=== PATIENT | male | born 1975 | race Caucasian/White ===

== ENCOUNTER 2016-07-27 17:17 | Emergency (ER) | payer SELFPAY ==
[~2016-07-27] VITALS: Ht 177.8 cm; Wt 95.3 kg
[2016-07-27 17:39] VITALS: BP 140/86
[2016-07-27 17:52] VITALS: BP 140/86
[2016-07-27] MEDS: NACL 0.9% 1,000 ML IV ONE (18:46)
[2016-07-27 18:50] LABS: BASOPHILS # (AUTO) 0.2 K/uL (0.00-0.22); BASOPHILS % (AUTO) 1.4 % (0.0-2.0); EOSINOPHILS # (AUTO) 0.2 K/uL (0-0.4); EOSINOPHILS % (AUTO) 1.5 % (0.0-4.0); HEMATOCRIT 44.7 % (36-52); HEMOGLOBIN 15.1 g/dL (12.0-18.0); LYMPHOCYTES # (AUTO) 2.4 K/uL (2.0-11.5); LYMPHOCYTES % (AUTO) 17.1 % (20.5-51.1); MEAN CORPUSCULAR HEMOGLOBIN 31 pg (27-31); MEAN CORPUSCULAR HGB CONC 34 g/dL (33-37); MEAN CORPUSCULAR VOLUME 91 fL (80-94); MONOCYTES # (AUTO) 0.9 K/uL (0.8-1.0); MONOCYTES % (AUTO) 6.2 % (1.7-9.3); NEUTROPHILS # (AUTO) 10.3 K/uL (1.8-7.7); NEUTROPHILS % (AUTO) 73.8 % (42.2-75.2); PLATELET COUNT (AUTO) 237 K/uL (140-450); RED BLOOD CELL COUNT(AUTO) 4.91 MIL/uL (4.20-6.10); RED CELL DISTRIBUTION WIDTH 13.4 % (11.6-13.7)
[2016-07-27 19:12] LABS: ALANINE AMINOTRANSFERASE 53 U/L (12-78); ALCOHOL, BLOOD < 3 mg/dL (<3); ALKALINE PHOSPHATASE 81 U/L (46-116); ASPARTATE AMINOTRANSFERASE 57 U/L (15-37); CALCIUM 8.8 mg/dL (8.5-10.1); CARBON DIOXIDE 29.1 mmol/L (21-32); CREATININE 0.9 mg/dL (0.6-1.3); GFR ARICAN-AMERICAN 120 mL/min (>90); GFR NON ARICAN-AMERICAN 99 mL/min (>90); GLUCOSE 115 mg/dL (74-106); TOTAL BILIRUBIN 0.7 mg/dL (0.0-1.0); TOTAL PROTEIN, SERUM 7.9 g/dL (6.4-8.2); UREA NITROGEN, BLOOD 9 mg/dL (7-18)
[2016-07-27 19:15] LABS: ACETAMINOPHEN < 0.5 ug/ml (10-30); SALICYLATE < 2.8 mg/dL (2.8-20.0)
[2016-07-27 19:23] LABS: ANION GAP 11.2 (8-16); CHLORIDE 98 mmol/L (98-107); POTASSIUM 3.3 mmol/L (3.5-5.1); SODIUM SERUM 135 mmol/L (136-145)
[2016-07-27 19:51] LABS: AMPHETAMINE, URINE POS. ng/ml (NEG <=1000); BARBITURATE, URINE NEG. ng/ml (NEG <=200); BENZODIAZEPINE, URINE NEG. ng/mL (NEG <=200); CANNABINOID, URINE NEG. ng/mL (NEG <=50); COCAINE, URINE NEG. ng/mL (NEG <=300); OPIATE, URINE NEG. ng/mL (NEG <=2000); PHENCYCLIDINE SCREEN,URINE NEG. ng/mL (NEG <=25)
[2016-07-27] MEDS ORDERED: LORazepam 2 MG/ML VIAL IVP ONE (20:05)
[2016-07-27 20:20] VITALS: BP 126/75
== END 2016-07-27 20:20 | disposition home or self-care (01) ==
LOC: MED 17:17
DX: G93.40 Encephalopathy, unspecified (principal); F19.10 Other psychoactive substance abuse, uncomplicated; R03.0 Elevated blood-pressure reading, without diagnosis of hypertension
CPT/HCPCS: 36415; 80053; 80305; 85025; 93005; 96360; 99284; G0480; G0482; J7030

== ENCOUNTER 2019-01-13 13:42 | Emergency (ER) | payer OTHER ==
[~2019-01-13] VITALS: Ht 177.8 cm; Wt 108.9 kg
--- NOTE | 2019-01-13 13:47 | NUR ---
AMB TO BED 11 WITH EVEN STEADY GAIT.
[2019-01-13 13:53] VITALS: BP 141/107
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
--- NOTE | 2019-01-13 14:10 | NUR ---
Dr. Madrid is evaluating the patient at bedside.
--- NOTE | 2019-01-13 14:17 | NUR ---
PATIENT TAKEN TO RADIOLOGY BY WHEELCHAIR.
[2019-01-13] MEDS ORDERED: KETOROLAC 60 MG/2 ML VIAL IM ONE (14:40)
[2019-01-13 15:45] VITALS: BP 135/91
--- NOTE | 2019-01-13 15:45 | NUR ---
Patient discharged with v/s stable. Written and verbal after care instructions given and explained. Patient alert, oriented and verbalized understanding of instructions. Ambulatory with steady gait. All questions addressed prior to discharge. ID band removed. Patient advised to follow up with PMD. Rx of MOTRIN AND TRAMADOL given. Patient educated on indication of medication including possible reaction and side effects. Opportunity to ask questions provided and answered.
== END 2019-01-13 15:45 | disposition home or self-care (01) ==
LOC: MED 13:42
DX: S42.002A Fracture of unspecified part of left clavicle, initial encounter for closed fracture (principal); V29.9XXA Motorcycle rider (driver) (passenger) injured in unspecified traffic accident, initial encounter; Y93.89 Activity, other specified; Y92.89 Other specified places as the place of occurrence of the external cause; Y99.8 Other external cause status
CPT/HCPCS: 29105; 73000; 96372; 99283; J1885

== ENCOUNTER 2021-09-16 11:01 | Emergency (ER) | payer OTHER ==
[~2021-09-16] VITALS: Ht 177.8 cm; Wt 96.3 kg
[2021-09-16 11:18] VITALS: BP 122/87
--- NOTE | 2021-09-16 11:23 | NUR ---
COVID DEMIAN, FLU SWABS DONE.
[2021-09-16] MEDS ORDERED: PROM118S5 PO (12:34)
[2021-09-16] MEDS ORDERED: IBUP-2218 PO (12:34)
--- NOTE | 2021-09-16 13:30 | NUR ---
SEEN & TREATED BY YULY MCINTOSH.
[2021-09-16 14:00] VITALS: BP 122/87
--- NOTE | 2021-09-16 14:00 | NUR ---
Patient discharged BY YULY MCINTOSH with v/s stable. Written and verbal after care instructions given and explained. Patient alert, oriented and verbalized understanding of instructions. Ambulatory with steady gait. All questions addressed prior to discharge. ID band removed. Patient advised to follow up with PMD. Rx of IBUPROFEN, PROMETHAZINE given. Patient educated on indication of medication including possible reaction and side effects. Opportunity to ask questions provided and answered. Addendum: 09/16/21 at 1403 by [facility] PT LEFT WITHOUT DISCHARHE PAPER
[2021-09-16] MEDS ORDERED: NIRM1TAB PO (14:05)
== END 2021-09-16 14:00 | disposition home or self-care (01) ==
LOC: MED 11:01
DX: U07.1 COVID-19 (principal)
CPT/HCPCS: 99283

== ENCOUNTER 2022-07-24 17:55 | Emergency (ER) | payer OTHER ==
[~2022-07-24] VITALS: Ht 160 cm; Wt 81.6 kg
[~2022-07-24 17:55] MED LIST: IBUP-2218 PO; NIRM1TAB PO; PROM118S5 PO
[2022-07-24 18:46] VITALS: BP 137/91
[2022-07-24] MEDS ORDERED: NAPR-54 PO (19:07)
[2022-07-24] MEDS ORDERED: HYDR28CR38 TP (19:07)
[2022-07-24] MEDS ORDERED: DIPH25TA53 PO (19:07)
--- NOTE | 2022-07-24 19:23 | NUR ---
PT CALLED FOR DC INSTRUCTIONS. NO ANSWER AT THIS TIME.
== END 2022-07-24 19:23 | disposition home or self-care (01) ==
LOC: MED 17:55
DX: R21 Rash and other nonspecific skin eruption (principal); R03.0 Elevated blood-pressure reading, without diagnosis of hypertension; F15.90 Other stimulant use, unspecified, uncomplicated; Z79.899 Other long term (current) drug therapy
CPT/HCPCS: 99281

== ENCOUNTER 2022-07-27 09:19 | Emergency (ER) | payer OTHER ==
[~2022-07-27] VITALS: Ht 177.8 cm; Wt 96.2 kg
[~2022-07-27 09:19] MED LIST changes: +DIPH25TA53 PO; +HYDR28CR38 TP; +NAPR-54 PO
[2022-07-27 09:24] VITALS: BP 145/97
[2022-07-27] MEDS ORDERED: PERM5CRE3 TP (10:04)
--- NOTE | 2022-07-27 10:41 | NUR ---
Patient discharged with v/s stable. Written and verbal after care instructions given and explained. Patient alert, oriented and verbalized understanding of instructions. Ambulatory with steady gait. All questions addressed prior to discharge. ID band removed. Patient advised to follow up with PMD. Rx of PERMETHRIN given. Patient educated on indication of medication including possible reaction and side effects. Opportunity to ask questions provided and answered.
== END 2022-07-27 10:41 | disposition home or self-care (01) ==
LOC: MED 09:19
DX: B86 Scabies (principal); Z79.899 Other long term (current) drug therapy
CPT/HCPCS: 99282

== ENCOUNTER 2022-07-31 13:44 | Emergency (ER) | payer OTHER ==
[~2022-07-31] VITALS: Ht 177.8 cm; Wt 97.5 kg
[~2022-07-31 13:44] MED LIST changes: +PERM5CRE3 TP
[2022-07-31 13:55] VITALS: BP 139/83
[2022-07-31] MEDS ORDERED: KETOROLAC 30 MG/ML VIAL IM ONE (14:15)
--- NOTE | 2022-07-31 14:28 | NUR ---
Patient returned from X-Ray. Brought to bed 8.
--- NOTE | 2022-07-31 14:45 | NUR ---
Lab at bedside.
[2022-07-31 14:59] LABS: BASOPHILS # (AUTO) 0.1 K/uL (0.00-0.22); BASOPHILS % (AUTO) 0.8 % (0.0-2.0); EOSINOPHILS # (AUTO) 0.1 K/uL (0-0.4); EOSINOPHILS % (AUTO) 1.6 % (0.0-4.0); HEMATOCRIT 38.8 % (36-52); HEMOGLOBIN 13.4 g/dL (12.0-18.0); LYMPHOCYTES # (AUTO) 2.4 K/uL (2.0-11.5); LYMPHOCYTES % (AUTO) 26.8 % (20.5-51.1); MEAN CORPUSCULAR HEMOGLOBIN 31 pg (27-31); MEAN CORPUSCULAR HGB CONC 35 g/dL (33-37); MEAN CORPUSCULAR VOLUME 89.4 fL (80-94); MONOCYTES # (AUTO) 0.5 K/uL (0.8-1.0); MONOCYTES % (AUTO) 5.9 % (1.7-9.3); NEUTROPHILS # (AUTO) 5.8 K/uL (1.8-7.7); NEUTROPHILS % (AUTO) 64.9 % (42.2-75.2); PLATELET COUNT (AUTO) 252 K/uL (140-450); RED BLOOD CELL COUNT(AUTO) 4.34 MIL/uL (4.20-6.10); RED CELL DISTRIBUTION WIDTH 14.4 % (11.6-13.7); WHITE BLOOD COUNT (AUTO) 8.9 K/uL (4.8-10.8)
[2022-07-31 15:12] LABS: ANION GAP 11.3 (8-16); CARBON DIOXIDE 28.5 mmol/L (21-32); CREATININE 0.8 mg/dL (0.6-1.3); POTASSIUM 3.8 mmol/L (3.5-5.1)
[2022-07-31] MEDS ORDERED: PRED20TA5 PO (15:19)
[2022-07-31] MEDS ORDERED: ELIMC TP (15:19)
--- NOTE | 2022-07-31 15:34 | NUR ---
YULY Tao re-evaluating patient at bedside.
--- NOTE | 2022-07-31 15:40 | NUR ---
Patient discharged with v/s stable. Written and verbal after care instructions given. Patient alert, oriented and verbalized understanding of instructions. Ambulatory with steady gait. All questions addressed prior to discharge. ID band removed. Patient advised to follow up with PMD. Rx of Premethrin and Prednisone given. Opportunity to ask questions provided and answered.
--- NOTE | 2022-07-31 15:41 | NUR ---
The patient's care was reviewed and supervised by [facility], RN.
== END 2022-07-31 15:40 | disposition home or self-care (01) ==
LOC: MED 13:44
DX: B86 Scabies (principal); M25.561 Pain in right knee; Z79.899 Other long term (current) drug therapy
CPT/HCPCS: 36415; 73562; 80048; 84550; 85025; 86140; 96372; 99284; J1885

== ENCOUNTER 2022-08-17 11:55 | Emergency (ER) | payer OTHER ==
[~2022-08-17] VITALS: Ht 175.3 cm; Wt 86.2 kg
[~2022-08-17 11:55] MED LIST changes: +ELIMC TP; +PRED20TA5 PO
[2022-08-17 12:13] VITALS: BP 138/84; PULSE 74; RESP 18; TEMP 98; O2SAT 99
[2022-08-17] MEDS ORDERED: FAMO-90 PO (13:14)
[2022-08-17] MEDS ORDERED: METH4TAB1 PO (13:14)
[2022-08-17] MEDS ORDERED: DIPH25TA53 PO (13:14)
[2022-08-17] MEDS ORDERED: ELIMC TP (13:25)
[2022-08-17] MEDS ORDERED: IVER3TAB2 PO (13:25)
[2022-08-17] MEDS ORDERED: PERM5CRE3 TP (13:25)
[2022-08-17 13:53] VITALS: O2SAT 99
--- NOTE | 2022-08-17 13:55 | NUR ---
PT LEFT WITHOUT DC PAPERWORK.
== END 2022-08-17 13:51 | disposition home or self-care (01) ==
LOC: MED 11:55
DX: R21 Rash and other nonspecific skin eruption (principal); Z79.899 Other long term (current) drug therapy
CPT/HCPCS: 99283

== ENCOUNTER 2022-08-24 16:55 | Emergency (ER) | payer OTHER ==
[~2022-08-24] VITALS: Ht 177.8 cm; Wt 97.5 kg
[~2022-08-24 16:55] MED LIST changes: +FAMO-90 PO; +IVER3TAB2 PO; +METH4TAB1 PO
[2022-08-24 16:59] VITALS: BP 137/92; PULSE 92; RESP 16; TEMP 98; O2SAT 98
--- NOTE | 2022-08-24 17:02 | NUR ---
DENIES MEDICAL HISTORY
--- NOTE | 2022-08-24 17:30 | NUR ---
GEN BODY RASH, NO BLISTER
[2022-08-24] MEDS ORDERED: METH4TAB1 PO (17:42)
[2022-08-24] MEDS ORDERED: ELIMC TP (17:42)
[2022-08-24] MEDS ORDERED: ATA25 PO (17:42)
--- NOTE | 2022-08-24 18:47 | NUR ---
KANCHAN EMERY GAVE PT VERBAL DC INNSTRUCTION, BUT LEFT BEFORE RECEIVING PRINTED DCI
== END 2022-08-24 18:46 | disposition home or self-care (01) ==
LOC: MED 16:55
DX: R21 Rash and other nonspecific skin eruption (principal); Z79.899 Other long term (current) drug therapy; Z79.1 Long term (current) use of non-steroidal anti-inflammatories (NSAID)
CPT/HCPCS: 99281

== ENCOUNTER 2022-10-17 08:43 | Emergency (ER) | payer OTHER ==
[~2022-10-17] VITALS: Ht 177.8 cm; Wt 97.5 kg
[~2022-10-17 08:43] MED LIST changes: +ATA25 PO
[2022-10-17 08:52] VITALS: BP 130/90; PULSE 86; RESP 18; TEMP 97.8; O2SAT 98
[2022-10-17 08:58] VITALS: O2SAT 98
[2022-10-17] MEDS ORDERED: KETOROLAC 60 MG/2 ML VIAL IM ONE (09:25)
[2022-10-17] MEDS ORDERED: PRED20TA5 PO (10:02)
[2022-10-17] MEDS ORDERED: IBUP-2213 PO (10:02)
[2022-10-17 10:15] VITALS: BP 113/75; PULSE 83; RESP 15; TEMP 97.8; O2SAT 98
== END 2022-10-17 10:16 | disposition home or self-care (01) ==
LOC: MED 08:43
DX: M25.561 Pain in right knee (principal); R21 Rash and other nonspecific skin eruption; M25.461 Effusion, right knee; Z79.899 Other long term (current) drug therapy; Z79.1 Long term (current) use of non-steroidal anti-inflammatories (NSAID)
CPT/HCPCS: 96372; 99283; J1885

== ENCOUNTER 2022-11-30 08:26 | Emergency (ER) | payer OTHER ==
[~2022-11-30] VITALS: Ht 172.7 cm; Wt 97.5 kg
[~2022-11-30 08:26] MED LIST changes: +IBUP-2213 PO
[2022-11-30 08:47] VITALS: BP 123/78; PULSE 84; RESP 20; TEMP 98; O2SAT 98
[2022-11-30] MEDS ORDERED: NAPR-1704 PO (09:47)
[2022-11-30 10:03] VITALS: BP 123/78; PULSE 84; RESP 20; TEMP 98; O2SAT 98
== END 2022-11-30 10:03 | disposition home or self-care (01) ==
LOC: MED 08:26
DX: M25.561 Pain in right knee (principal); Z79.899 Other long term (current) drug therapy
CPT/HCPCS: 99282

== ENCOUNTER 2023-07-25 10:11 | Emergency (ER) | payer OTHER ==
[~2023-07-25] VITALS: Ht 177.8 cm; Wt 99.8 kg
[~2023-07-25 10:11] MED LIST changes: +NAPR-1704 PO; +NAPR-337 PO; -NAPR-54 PO
[2023-07-25 10:26] VITALS: BP 135/85; PULSE 83; RESP 20; TEMP 97.4; O2SAT 98
[2023-07-25 10:52] VITALS: BP 128/78; PULSE 83; RESP 20; TEMP 97.4; O2SAT 98
[2023-07-25] MEDS: DICYCLOMINE 10 MG CAP PO ONE (10:54)
== END 2023-07-25 10:56 | disposition home or self-care (01) ==
LOC: MED 10:11
DX: R19.7 Diarrhea, unspecified (principal); Z79.899 Other long term (current) drug therapy
CPT/HCPCS: 99283

== ENCOUNTER 2023-08-04 10:52 | Emergency (ER) | payer OTHER ==
[~2023-08-04] VITALS: Ht 177.8 cm; Wt 95.3 kg
[2023-08-04 11:02] VITALS: BP 126/84; PULSE 73; RESP 18; TEMP 97.3; O2SAT 99
[2023-08-04] MEDS ORDERED: LOPE-202 PO (12:46)
[2023-08-04 12:50] VITALS: BP 126/84; PULSE 73; RESP 18; TEMP 97.3; O2SAT 99
== END 2023-08-04 12:50 | disposition home or self-care (01) ==
LOC: MED 10:52
DX: R19.7 Diarrhea, unspecified (principal); R03.0 Elevated blood-pressure reading, without diagnosis of hypertension; Z79.1 Long term (current) use of non-steroidal anti-inflammatories (NSAID); Z79.899 Other long term (current) drug therapy
CPT/HCPCS: 99282